=== PATIENT | female | born 1960 ===

== ENCOUNTER 2021-04-08 05:34 | Outpatient (CLI) | payer OTHER ==
[~2021-04-08] VITALS: Ht 167.6 cm; Wt 108.9 kg
[2021-04-08] MEDS ORDERED: ESTR0.5T PO (13:38)
[2021-04-08] MEDS ORDERED: LEVO112T2 PO (13:38)
[2021-04-08] MEDS ORDERED: CARV25TA PO (13:38)
== END 2021-04-08 16:07 | disposition home or self-care (01) ==
LOC: PREOP 05:34
PROVIDERS: ATTEND Surgery
DX: Z01.818 Encounter for other preprocedural examination (principal)